=== PATIENT | female | born 2000 | race Caucasian/White ===

== ENCOUNTER 2024-11-11 19:52 | Day surgery (SDC) | payer BC, MEDICAID ==
[2024-11-11 20:13] VITALS: BMI 30.4
[2024-11-11] MEDS ORDERED: hydrALAZINE 20 MG/ML VIAL SLOW IVP PRN (20:22)
== END 2024-11-11 21:54 | disposition home or self-care (01) ==
LOC: CSHLD/OP 19:52
PROVIDERS: ATTEND Family Medicine
DX: O36.8130 Decreased fetal movements, third trimester, not applicable or unspecified (principal); O23.593 Infection of other part of genital tract in pregnancy, third trimester; N89.8 Other specified noninflammatory disorders of vagina; Z3A.35 35 weeks gestation of pregnancy; Z79.899 Other long term (current) drug therapy
CPT/HCPCS: 76819; 87480; 87510; 87660; 99283

== ENCOUNTER 2024-11-25 06:50 | Day surgery (SDC) | payer MEDICAID ==
[2024-11-25] MEDS ORDERED: hydrALAZINE 20 MG/ML VIAL SLOW IVP PRN (07:32)
[2024-11-25 08:10] VITALS: BMI 30.4
== END 2024-11-25 09:41 | disposition home health service (06) ==
LOC: CSHLD/OP 06:50
PROVIDERS: ATTEND Family Medicine
DX: O36.8130 Decreased fetal movements, third trimester, not applicable or unspecified (principal); O36.63X0 Maternal care for excessive fetal growth, third trimester, not applicable or unspecified; O99.013 Anemia complicating pregnancy, third trimester; Z3A.37 37 weeks gestation of pregnancy; Z79.899 Other long term (current) drug therapy
CPT/HCPCS: 76819; 99283